=== PATIENT | male | born 1990 | race Caucasian/White ===

== ENCOUNTER 2021-04-21 20:24 | Emergency (ER) | payer BC ==
[2021-04-21] MEDS ORDERED: HYDROcod/ACET 5/325 Prepack 4 PO STA (20:46)
--- NOTE | 2021-04-21 20:51 | ED Physician Documentation ---
PD HPI ABD PAIN - Stated complaint Stated Complaint: BACK PX,MALE - Chief complaint Chief Complaint: Abd Pain - History obtained from History obtained from: Patient - Additional information Additional information: 31-year-old gentleman who had a single episode of kidney stones about 8 years ago, but it did culminated in an episode of urosepsis. Tonight he got out of the shower and had a brief episode of penile pain rating to the left greater than right flanks. Pain is all but imperceptible now. No hematuria or dysuria. Review of Systems Constitutional: denies: Fever Ears: reports: Reviewed and negative Nose: reports: Reviewed and negative Throat: reports: Reviewed and negative PD PAST MEDICAL HISTORY - Past Medical History Past Medical History: Yes : Kidney stones Derm: Herpes zoster - Past Surgical History Past Surgical History: Yes General: Appendectomy - Present Medications Home Medications: Ambulatory Orders Medication Instructions Recorded Confirmed Valacyclovir HCl [Valtrex] 1 gm PO DAILY PRN 04/21/21 04/21/21 - Allergies Allergies/Adverse Reactions: Allergies Allergy/AdvReac Type Severity Reaction Status Date / Time No Known Drug Allergies Allergy Verified 04/21/21 20:32 - Social History Does the pt smoke?: No Smoking Status: Never smoker Does the pt drink ETOH?: Yes ETOH Use: Beer Does the pt have substance abuse?: No - Immunizations Immunizations are current?: Yes PD ED PE NORMAL - Vitals Vital signs reviewed: Yes - General General: Alert and oriented X 3, No acute distress - Abdomen Abdomen: Normal bowel sounds, Soft, Non tender - Back Back: No CVA TTP, No spinal TTP - Neuro Neuro: Alert and oriented X 3, Normal speech Results - Vitals Vitals: Vital Signs - 24 hr 04/21/21 04/21/21 20:28 20:33 Temperature 36.5 C 36.5 C Heart Rate 102 H 97 Respiratory 16 16 Rate Blood Pressure 126/78 126/78 O2 Saturation 98 98 Oxygen O2 Source Room air - Labs Labs: Laboratory Tests 04/21/21 20:58 Urine Color YELLOW Urine Clarity CLEAR Urine pH 5.5 Ur Specific Desmet >=1.030 H Urine Protein TRACE Urine Glucose (UA) NEGATIVE Urine Ketones NEGATIVE Urine Occult Blood TRACE-INTA Urine Nitrite NEGATIVE Urine Bilirubin NEGATIVE Urine Urobilinogen 0.2 (NORMAL) Ur Leukocyte Esterase NEGATIVE Ur Microscopic Review NOT INDICATED Urine Culture Comments NOT INDICATED PD MEDICAL DECISION MAKING - ED course ED course: He is pre much pain-free right now and presumes he already passed a stone. He declined advanced testing such as imaging/CT scan/ultrasound. We agreed to at least get a urinalysis to make sure there was no infection. Departure - Departure Disposition: 01 Home, Self Care Clinical Impression: Renal colic Condition: Good Record reviewed to determine appropriate education?: Yes Instructions: ED Stone Renal W Colic Comments: Call your doctor to arrange a follow-up appointment, make the next available appointment. In the interim, return anytime if worse or if new symptoms develop.
[2021-04-21 21:03] LABS: BILIRUBIN,URINE NEGATIVE (NEGATIVE); GLUCOSE, URINE (UA) NEGATIVE (NEGATIVE); KETONES,URINE (UA) NEGATIVE (NEGATIVE); LEUKOCYTE ESTERASE, URINE NEGATIVE (NEGATIVE); NITRITE,URINE NEGATIVE (NEGATIVE); OCCULT BLOOD,URINE TRACE-INTA (NEGATIVE); PH,URINE 5.5 PH (5.0-7.5); PROTEIN,URINE TRACE mg/dL (NEGATIVE); UROBILINOGEN,URINE 0.2 (NORMAL) E.U./dL (NORMAL)
[2021-04-21 21:06] LABS: CLARITY,URINE CLEAR (CLEAR)
[2021-04-21 21:14] VITALS: BP 122/74
== END 2021-04-21 21:13 | disposition home or self-care (01) ==
LOC: ED 20:24
DX: N23 Unspecified renal colic (principal)
CPT/HCPCS: 81001; 81003; 87086; 99282; 99283

== ENCOUNTER 2022-05-24 00:51 | Emergency (ER) | payer BC | END 2022-05-24 01:12 | disposition left against medical advice (07) | LOC: ED 00:51 | DX: Z53.21 Procedure and treatment not carried out due to patient leaving prior to being seen by health care provider (principal) ==

== ENCOUNTER 2022-08-21 17:35 | Outpatient (CLI) | payer OTHER, BC | END 2022-08-21 23:59 | disposition critical access hospital (66) | LOC: EMS 17:35 | DX: M54.6 Pain in thoracic spine (principal); M54.50 Low back pain, unspecified; S51.012A Laceration without foreign body of left elbow, initial encounter; V53.5XXA Driver of pick-up truck or van injured in collision with car, pick-up truck or van in traffic accident, initial encounter; Y92.413 State road as the place of occurrence of the external cause | CPT/HCPCS: A0425; A0429 ==

== ENCOUNTER 2022-08-21 18:00 | Emergency (ER) | payer OTHER, BC ==
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
[2022-08-21 20:05] VITALS: BP 139/111
== END 2022-08-21 20:05 | disposition home or self-care (01) ==
LOC: EDUNIT# → ED 18:00
DX: S16.1XXA Strain of muscle, fascia and tendon at neck level, initial encounter (principal); S39.012A Strain of muscle, fascia and tendon of lower back, initial encounter; V53.5XXA Driver of pick-up truck or van injured in collision with car, pick-up truck or van in traffic accident, initial encounter; Y93.89 Activity, other specified
CPT/HCPCS: 36415; 99283; 99284